=== PATIENT | female | born 1990 | race Two or more races ===

== ENCOUNTER → 2024-11-12 | Outpatient (CLI) | payer MEDICAID, SELFPAY ==
--- NOTE | 2024-11-12 14:45 | XR_ITS ---
Examination: Breast ultrasound, unilateral, right complete Date and time of exam: November 12, 2024 1541 hours Comparison November 07, 2022 INDICATIONS: Right breast pain for years Technique: Real-time gongora scale ultrasonographic imaging performed right breast including all 4 quadrants as well as nipple retroareolar and axillary region. Findings: No cystic or solid mass IMPRESSION: BI-RADS Category 1: Negative study
--- NOTE | 2024-11-12 15:15 | XR_ITS ---
Examination: Diagnostic digital mammography, bilateral Computer aided detection 3-D breast Tomosynthesis, bilateral Date and time of exam: November 12, 2024 1555 hours Compared to mammograms dating to November 07, 2022 INDICATIONS: Right breast pain for years Technique: Nonmagnified MLO, CC views of the breasts to been obtained, reconstructed from 3-D Tomosynthesis images. R2 computer aided detection program utilized for evaluation of suspicious masses and/or abnormal calcifications. 3-D Tomosynthesis images obtained. Findings: Scattered areas of fibroglandular density Right breast sonogram today is negative No suspicious masses Impression: BI-RADS Category 2: Benign findings If right breast pain persists, recommend repeat right breast sonography in 6 months.
== END | disposition home or self-care (01) ==
PROVIDERS: PCP Physician Assistant; Referring Provider Physician Assistant; Visit Provider Physician Assistant
DX: R92.323 Mammographic fibroglandular density, bilateral breasts (principal); N64.4 Mastodynia
CPT/HCPCS: 76641; 77062; 77066; G0279